=== PATIENT | male | born 1970 | race Caucasian/White ===

== ENCOUNTER 2017-05-06 20:41 | Emergency (ER) | payer SELFPAY ==
[2017-05-06] MEDS ORDERED: HYDROmorphONE/DILAUDID 1 MG/ML INJ IVP ONE (21:02)
[2017-05-06] MEDS ORDERED: NS 1,000 ML IV ONE (21:05)
--- NOTE | 2017-05-06 21:17 | CPEKG ---
Heart Rate: 97 RR Interval: 619 P-R Interval: 136 QRSD Interval: 92 QT Interval: 336 QTC Interval: 427 P [place]: 35 QRS [place]: 35 T Wave [place]: 1 EKG Severity - NORMAL ECG - EKG Impression: SINUS RHYTHM Electronically Signed By: Daksha Alonso 06-May-2017 22:53:39
--- NOTE | 2017-05-06 21:18 | EDPHY ---
H & P Stated Complaint: LBP Time Seen by Provider: 05/06/17 21:05 HPI/ROS: CHIEF COMPLAINT: Back pain HISTORY OF PRESENT ILLNESS: This is a 46-year-old male who presents reporting a rather sudden onset of high right back pain at 1 o'clock today. Patient had some aching in this area yesterday. Pain is moderate to severe. Patient has tried menthol cream, CBD patches, and marijuana edible with minimal relief. Patient reports cramps in this area. No radiation to the anterior chest. No radiation to the abdomen. No urinary complaints, and no hematuria. Denies nausea or vomiting, but does state that he had crampy abdominal discomfort and shaking earlier. Patient denies lower back pain. Denies radiation into the buttocks or legs. Denies injury or trauma. He also reports some anterior discomfort that feels like he might have bronchitis. No shortness of breath. No palpitations. No lightheadedness or dizziness or fainting. No fever, chills, shortness of breath, palpitations, vomiting, diarrhea, urinary complaints, headache, lightheadedness. REVIEW OF SYSTEMS: Aside from elements discussed in the HPI, a comprehensive 10-point review of systems was reviewed and is negative. PAST MEDICAL HISTORY: Patient denies. SOCIAL HISTORY: Smoker. Denies alcohol or illicit drug use. VITAL SIGNS Reviewed by me. GENERAL: Well-developed, well-nourished, very uncomfortable appearing. Reports significant discomfort in the high right flank area. HEENT: Atraumatic. Eyes: No icterus, no injection. Mouth: moist mucous membranes. No erythema or lesions. Neck: supple with no adenopathy. LUNGS: Clear to auscultation bilaterally, no wheezes, rhonchi or rales. CARDIAC: Regular rate and rhythm, no rubs, murmurs or gallops. ABDOMEN: Soft, nontender, nondistended, bowel sounds normal. BACK: No tenderness to palpation. Patient does have a menthol patch in the right flank/right lower posterior chest area. He reports this is where his discomfort is. EXTREMITIES: No trauma. No edema. Range of motion is normal throughout. NEURO: Alert and oriented, grossly nonfocal. SKIN: Warm and dry, no rash. PSYCHIATRIC: Normal mentation, no agitation. - Personal History Current Tetanus/Diphtheria Vaccine: Unsure - Medical/Surgical History Hx Asthma: No Hx Chronic Respiratory Disease: No Hx Diabetes: No Hx Cardiac Disease: No Hx Renal Disease: No Hx Cirrhosis: No Hx Alcoholism: No Hx HIV/AIDS: No Hx Splenectomy or Spleen Trauma: No Other PMH: PMH: REFLUX, GERD. PSH: DENIES - Social History Smoking Status: Current every day smoker Constitutional: Initial Vital Signs Temperature (C) 36.7 C 05/06/17 20:45 Heart Rate 104 H 05/06/17 20:45 Respiratory Rate 18 05/06/17 20:45 Blood Pressure 173/109 H 05/06/17 20:45 O2 Sat (%) 96 05/06/17 20:45 O2 Delivery Mode Nasal Cannula O2 (L/minute) 2 Allergies/Adverse Reactions: No Known Allergies Allergy (Unverified 05/06/17 21:03) Home Medications: Medication Instructions Recorded Benzonatate [Tessalon Pearles (RX)] 100 mg PO TID PRN #20 cap 05/06/17 Cyclobenzaprine [Flexeril 10 MG 10 mg PO TID PRN #15 tab 05/06/17 (*)] Dicyclomine [Bentyl 20 MG (*)] 20 mg PO QID PRN #20 tab 05/06/17 oxyCODONE/APAP 5/325 [Percocet 1 tab PO Q6H PRN #15 tab 05/06/17 5/325 (*)] Medical Decision Making - Diagnostics EKG Interpretation: 12-LEAD EKG: Please see the full report in [facility]. My interpretation: Sinus rhythm Imaging Results: Imaging Impressions Abdomen/Pelvis CT 05/06/17 21:02 Impression: 1. No nephrolithiasis or obstructing ureteral calculi. 2. No intraabdominal mass, lymphadenopathy, or localized inflammatory process. 3. No bone lesion or acute compression fracture. Findings discussed with Emergency Department physician, Daksha Alonso M.D., on May 06, 2017 at 2138. Attention: This CT examination is specifically designed to evaluate patients who are clinically suspected of having acute obstructive uropathy. This examination does not use radiographic contrast, and as such, provides only a limited evaluation of the abdomen, pelvis, and retroperitoneum. If there is further clinical suspicion for pathological conditions other than obstructive uropathy, a complete CT evaluation of the abdomen and pelvis utilizing intravenous, oral, and rectal contrast should be considered. Imaging: Discussed imaging studies w/ bilingual call center representative Radiologist ED Course/Re-evaluation: 46-year-old male presenting with significant posterior your right low chest/ upper flank discomfort. Began at 1 o'clock today. Associated with some abdominal discomfort. No radiation. Patient seems quite uncomfortable. Area of discomfort is not typical of lumbar spine pain. Patient had a urine test performed at his physician's office earlier today which was negative for hematuria. IV was placed and patient received Dilaudid as well as Valium for muscle spasm. EKG, CT scan, labs ordered. Evaluation the emergency department with largely reassuring. Patient has a negative CT scan of his abdomen. No kidney stones, renal pathology, lower chest pathology, or bowel pathology. Labs are normal. Patient's D-dimer is negative. He was significantly improved with Dilaudid as well as Valium. He received Toradol 15 mg IV. Lidocaine patch was placed. Patient also asked me regarding a rash that is on his neck and elbow. It appears to be a contact dermatitis. I recommend 1% hydrocortisone cream. He also reports a long history of intermittent crampy abdominal discomfort with gas and bloating on occasions. Prescription for Bentyl was provided. Differential Diagnosis: Differential diagnoses for the patient's symptom complex was considered including but not limited to muscle spasm, kidney stone, pulmonary embolism, pleurisy, pulmonary pathology, zoster, pyelonephritis,and intra-abdominal causes such as diverticulitis and appendicitis. - Data Points Laboratory Results: Laboratory Results 05/06/17 21:05 05/06/17 21:05 05/06/17 05/06/17 05/06/17 21:05 21:05 21:05 WBC 12.32 10^3/uL H 10^3/uL (3.80-9.50) RBC 4.75 10^6/uL 10^6/uL (4.40-6.38) Hgb 15.5 g/dL g/dL (13.7-17.5) Hct 45.0 % % (40.0-51.0) MCV 94.7 fL fL (81.5-99.8) MCH 32.6 pg pg (27.9-34.1) MCHC 34.4 g/dL g/dL (32.4-36.7) RDW 12.7 % % (11.5-15.2) Plt Count 275 10^3/uL 10^3/uL (150-400) MPV 9.7 fL fL (8.7-11.7) Neut % (Auto) 64.7 % % (39.3-74.2) Lymph % (Auto) 23.8 % % (15.0-45.0) [place] % (Auto) 8.3 % % (4.5-13.0) Eos % (Auto) 1.9 % % (0.6-7.6) Baso % (Auto) 0.8 % % (0.3-1.7) Nucleat RBC Rel Count 0.0 % % (0.0-0.2) Absolute Neuts (auto) 7.97 10^3/uL H 10^3/uL (1.70-6.50) Absolute Lymphs (auto) 2.93 10^3/uL 10^3/uL (1.00-3.00) Absolute Monos (auto) 1.02 10^3/uL H 10^3/uL (0.30-0.80) Absolute Eos (auto) 0.24 10^3/uL 10^3/uL (0.03-0.40) Absolute Basos (auto) 0.10 10^3/uL 10^3/uL (0.02-0.10) Absolute Nucleated RBC 0.00 10^3/uL 10^3/uL (0-0.01) Immature Gran % 0.5 % % (0.0-1.1) Immature Gran # 0.06 10^3/uL 10^3/uL (0.00-0.10) D-Dimer 0.28 ug/mLFEU ug/mLFEU (0.00-0.50) Sodium 141 mEq/L mEq/L (134-144) Potassium 4.0 mEq/L mEq/L (3.5-5.2) Chloride 101 mEq/L mEq/L (97-110) Carbon Dioxide 25 mEq/l mEq/l (22-31) Anion Gap 15 mEq/L mEq/L (8-16) BUN 12 mg/dL mg/dL (7-23) Creatinine 0.9 mg/dL mg/dL (0.7-1.3) Estimated GFR > 60 Glucose 115 mg/dL H mg/dL (70-100) Calcium 10.0 mg/dL mg/dL (8.5-10.4) Lipase 108 IU/L IU/L (23-300) Medications Given: Discontinued Medications Diazepam (Valium Injection) 5 mg IVP EDNOW ONE Stop: 05/06/17 21:24 Last Admin: 05/06/17 21:38 Dose: 5 mg Hydromorphone HCl (Dilaudid) 1 mg IVP EDNOW ONE Stop: 05/06/17 21:03 Last Admin: 05/06/17 21:31 Dose: 1 mg Sodium Chloride (Ns) 1,000 mls @ 0 mls/hr IV ONCE ONE; Wide Open PRN Reason: Protocol Stop: 05/06/17 21:06 Last Admin: 05/06/17 21:30 Dose: 1,000 mls Ketorolac Tromethamine (Toradol) 15 mg IVP EDNOW ONE Stop: 05/06/17 22:19 Last Admin: 05/06/17 22:25 Dose: 15 mg Departure - Departure Disposition: Home, Routine, Self-Care Clinical Impression: Back pain of thoracolumbar region Condition: Good Instructions: Thoracic Pain (ED), Back Pain (ED) Additional Instructions: Musculoskeletal pain is often treated with anti-inflammatories, muscle relaxants , and pain medications. 1. I recommend Ibuprofen (Motrin, Advil) or Naproxen Sodium (Aleve) for pain and anti-inflammatory effects. You may take either one, but do not take both. Your dose is: Ibuprofen 600 mg every 6-8 hours with food. OR Naproxen Sodium (Aleve) 220 mg every 12 hours. 2. For muscle relaxation, you been given a prescription of Flexeril. Please take this as directed. It may make you sleepy. 3. For pain relief, I suggest high-dose Tylenol (650mg-1000mg of Tylenol) up to 3 times a day. Not exceed 3000 mg in a 24 hour period. I also suggest lidocaine patches. 4% lidocaine patches are available over-the- counter. For severe pain, you may use Percocet. Please note that Tylenol is contained Percocet. 4. Apply ice for 20-30 minutes every 2-3 hours for the next 48 hours. After 48 hours, a heating pad or hot tub may feel better. 5. Please follow up with your primary care physician if you're not improving as expected in the next several days. 6. Consider physical therapy or chiropractic followup for persistent discomfort. Return to the emergency department if you experience significantly worsening pain, pain radiating into the legs, weakness, numbness or tingling, difficulties with bowel or bladder, fever, nausea, vomiting, or other concerns. You may try Bentyl for your abdominal discomfort. I also recommend hydrocortisone 1% cream for the rash. Referrals: Say Chi MD [Primary Care Provider] - As per Instructions Prescriptions: Benzonatate [Tessalon Pearles (RX)] 100 mg PO TID PRN #20 cap PRN Reason: Cough Cyclobenzaprine [Flexeril 10 MG (*)] 10 mg PO TID PRN #15 tab PRN Reason: Spasms Dicyclomine [Bentyl 20 MG (*)] 20 mg PO QID PRN #20 tab PRN Reason: abdominal pain oxyCODONE/APAP 5/325 [Percocet 5/325 (*)] 1 tab PO Q6H PRN #15 tab PRN Reason: Pain, Severe
[2017-05-06 21:23] LABS: % IMMATURE GRANULYOCYTES 0.5 % (0.0-1.1); ABSOLUTE IMMATURE GRANULOCYTES 0.06 10^3/uL (0.00-0.10); ADD DIFF? NO; ADD MORPH? NO; ADD SCAN? NO; ATYPICAL LYMPHOCYTE FLAG 20 (0-99); FRAGMENT RBC FLAG 0 (0-99); HEMOGLOBIN 15.5 g/dL (13.7-17.5); LEFT SHIFT FLG 0 (0-99); LIPEMIA HEMOLYSIS FLAG 90 (0-99); MEAN CELL HEMOGLOBIN 32.6 pg (27.9-34.1); MEAN CELL HEMOGLOBIN CONCENTR. 34.4 g/dL (32.4-36.7); MEAN CELL VOLUME 94.7 fL (81.5-99.8); MEAN PLATELET VOLUME 9.7 fL (8.7-11.7); PLATELET CLUMPS FLAG 0 (0-99); PLATELET COUNT 275 10^3/uL (150-400); RED BLOOD CELL COUNT 4.75 10^6/uL (4.40-6.38); RED CELL DISTRIBUTION WIDTH 12.7 % (11.5-15.2)
[2017-05-06] MEDS ORDERED: DIAZEPAM 10 MG/2 ML SYR IVP ONE (21:23)
[2017-05-06 21:34] LABS: ANION GAP 15 mEq/L (8-16); CARBON DIOXIDE 25 mEq/l (22-31); CHLORIDE 101 mEq/L (97-110); CREATININE 0.9 mg/dL (0.7-1.3); GLOMERULAR FILTRATION RATE > 60; GLUCOSE 115 mg/dL (70-100); SODIUM 141 mEq/L (134-144)
[2017-05-06 21:40] VITALS: RESP 16
[2017-05-06] MEDS ORDERED: CYCLOBENZAPRINE 10MG PREPACK#3 BTL TAKEHOME ONE (22:18)
[2017-05-06] MEDS ORDERED: KETOROLAC 15 MG/1 ML SDV IVP ONE (22:18)
[2017-05-06] MEDS ORDERED: OXYCODONE/APAP 5/325MG PREPACK#4 BTL TAKEHOME ONE (22:18)
[2017-05-06] MEDS ORDERED: LIDOCAINE 5% 1 EA PATCH TD ONE (22:23)
[2017-05-06 22:37] VITALS: BP 148/85; PULSE 84; TEMP 98.6; O2SAT 93
[2017-05-07] MEDS ORDERED: PATCH REMOVAL 1 EA PATCH TD SCH (21:00)
== END 2017-05-06 23:00 | disposition home or self-care (01) ==
LOC: CED 20:41
DX: M54.5 Low back pain (principal); M54.6 Pain in thoracic spine; F17.200 Nicotine dependence, unspecified, uncomplicated; E86.9 Volume depletion, unspecified
CPT/HCPCS: 74176-PO; 80048-PO; 83690-PO; 85025-PO; 85378-PO; 96374; J1170; J1885